=== PATIENT | female | born 1955 | race Caucasian/White ===

== ENCOUNTER → 2018-01-22 | Outpatient (CLI) | payer OTHER ==
[~2018-01-22] MED LIST: Advair HFA 115/21 IH; Ascorbic Acid,Ester- PO; BELSOMRA15 MG PO; CYANOCOBALAM1000 MCG PO; Colace PO; Dilaudid PO; Dulcolax PO; Flexeril PO; Habitrol,Nicoderm CQ TD; KLONOPIN1 MG PO; Lithium Carbonate PO; Miralax, Glycolax PO; NABI650T PO; OXCARBAZEPINE300 MG PO; Oscal 500 w/Vitamin PO; Protonix PO; SEROQUEL400 MG PO; SEROquel PO; Senokot S,Pericolace PO; THERAGRAN1 TABLET PO; TOPIRAMATE50 MG PO; TRAZODONE HCL150 MG PO; Topamax PO; Tylenol Regular Stre PO; Vitamin B-12 IM; ZOCOR40 MG PO; Zocor PO; ZyPREXA PO
== END | disposition home or self-care (01) ==
LOC: OPR 08:01 → EDSTATUS 09:00 → OPR 09:00
DX: N18.4 Chronic kidney disease, stage 4 (severe) (principal); K21.9 Gastro-esophageal reflux disease without esophagitis; Z88.2 Allergy status to sulfonamides
CPT/HCPCS: 77012; 88305; 88313 90; 88346 90; 88348 90; J3010